=== PATIENT | female | born 1965 | race African-American/Black ===

== ENCOUNTER 2017-10-31 10:35 | Emergency (ER) | payer MEDICAID ==
[~2017-10-31] VITALS: Ht 165.1 cm; Wt 75.0 kg
[2017-10-31] MEDS ORDERED: ALBUTEROL (0.083%) 2.5MG/3ML NEB HHN STA (10:57)
[2017-10-31] MEDS ORDERED: BENZONATATE 100MG CAPSULE PO ONE (11:00)
[2017-10-31] MEDS ORDERED: ACETAMINOPHEN 325MG TABLET PO ONE (12:00)
[2017-10-31 12:51] VITALS: BP 127/69
== END 2017-10-31 13:10 | disposition home or self-care (01) ==
LOC: ER 11:04
DX: B34.9 Viral infection, unspecified (principal)
CPT/HCPCS: 71045; 93005; 99284; J7611